=== PATIENT | male | born 1970 | race Caucasian/White ===

== ENCOUNTER 2017-10-22 21:16 | Observation (INO) ==
[2017-10-22] MEDS ORDERED: Aspirin 81 MG TAB.CHEW PO ONE (21:42)
--- NOTE | 2017-10-22 21:46 | Emergency Department Note ---
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 Pt complaint: chest pain Onset (ago): Just SOX ANALYST Duration: constant, now resolved Onset: during exertion Pain Location: substernal, left chest Severity: mild, moderate, now resolved Severity scale (1-10): 0 Quality: tightness, aching Pain Radiation: none Improves with: nothing Worsens with: exertion Treatments prior to arrival chest pain: none - Related Data Previous Rx's Medication Instructions Recorded Butenafine HCl [Lotrimin Ultra] 1 applic TP BID #15 gm 02/07/16 Ketoconazole Shampoo [Nizoral 120 ml TP ONCE #1 shampoo 05/08/16 Shampoo] Clotrimazole 1% CRM [Lotrimin 1%] 1 appl TP BID PRN #1 tube 02/09/17 Terbinafine HCl [Lamisil] 250 mg PO QDPC #14 tablet 02/09/17 Hydrocortisone 1% OINT [Cortaid] 0.5 inch TP BID #1 tube 03/22/17 Diphenhydramine HCl/Zinc Acet 28.3 gm TP BID #1 cream..g. 03/23/17 [Benadryl Itch Stopping Crm] Amoxicillin/Clavulanate [Augmentin] 875 mg PO BIDWM 5 Days tablet 05/06/17 Clotrimazole 1% CRM [Lotrimin 1%] 15 appl TP BID #1 tube 05/06/17 Guaifenesin [Mucinex] 1,200 mg PO BID #20 tab.er.12h 06/02/17 Ibuprofen [Motrin] 600 mg PO Q8HR PRN #20 tab 06/02/17 Loratadine/Pseudophed (12 HR) 1 each PO BID #14 tab.er.12h 06/02/17 [Claritin D (12HR)] Gentamicin OPTH Soln 1 drop LEFT EYE QID #1 bottle 07/21/17 Dexamethasone OPTH Drops [Decadron 1 drop LEFT EYE QID 5 Days #1 07/24/17 OPTH Drops] bottle Ibuprofen [Motrin] 600 mg PO Q8HR PRN #21 tab 07/24/17 methylPREDNISolone [Medrol] 1 each PO DAILY #1 pack 10/09/17 Allergies Allergy/AdvReac Type Severity Reaction Status Date / Time No Known Allergies Allergy Verified 10/09/17 15:54 All systems ED: reviewed and negative except as stated. Constitutional: Denies: fever, chills, weakness, weight change Eyes: Denies: eye pain, eye discharge, vision change ENT ED: Denies: ear pain, throat pain, dental pain, hearing loss, epistaxis, congestion, dysphagia Cardiovascular: Reports: chest pain. Denies: palpitations, dyspnea on exertion , edema, syncope Respiratory: Denies: cough, dyspnea, wheezes, hemoptysis, stridor Gastrointestinal: Denies: abdominal pain, nausea, vomiting, diarrhea, constipation, hematemesis, melena, hematochezia Genitourinary: Denies: urgency, dysuria, frequency, hematuria Musculoskeletal: Denies: back pain, neck pain, arthralgia, myalgia Integumentary: Denies: rash, abrasion, lesions Neurological: Denies: headache, weakness, numbness, paresthesias, confusion, abnormal gait, vertigo Psychiatric: Denies: anxiety, depression, suicidal thoughts, homicidal thoughts , auditory hallucinations, visual hallucinations Endocrine: Denies: fatigue Hematological/Lymphatic: Denies: easy bleeding, easy bruising Allergic/Immunologic: Denies: facial swelling, urticaria Chest Pain PMH - Past Medical History Medical history: Reports: non-contributory, hyperlipidemia, hypertension, other Surgical history: Reports: non-contributory Psychiatric history: Reports: no psych history - Social History Smoking Status: Former smoker Alcohol use: Reports: none Drug use: Reports: none Physical Exam - General Limitations: no limitations General appearance: alert - Head Head exam: atraumatic - Eye Eye exam: Present: normal appearance, PERRL, EOMI - ENT ENT exam: normal exam, normal oropharynx, mucous membranes moist - Neck Neck exam: Present: normal inspection, full ROM, trachea midline - Chest Chest inspection: Present: normal inspection, symmetric chest wall rise - Respiratory Respiratory exam: Present: normal lung sounds bilaterally - Cardiovascular Cardiovascular exam: Present: regular rate, normal rhythm, normal heart sounds - Abdominal Exam Abdominal exam: Present: soft, Non-Tender. Absent: tenderness, distention, guarding, rebound, rigidity - Extremities Exam Extremities exam: Present: normal inspection, full ROM. Absent: tenderness, pedal edema - Expanded Lower Extremity Exam Neurovascular/Tendon exam: Absent: motor deficit, sensory deficit, tendon deficit Gait: observed and normal - Back Exam Back exam: Present: normal inspection - Neurological Exam Neurological exam: Present: alert, oriented X3 - Psychiatric Psychiatric exam: Present: normal affect, normal mood - Skin Skin exam: Present: warm, dry, intact, normal color Course - Reevaluation(s) Reevaluation #1: 47-year-old with exertional chest pain will admit. Time: 23:02 - Consultations Consultation #1: Discussed with Dr. Rodrigues, admit. Time: 23:02 Vital Signs Temperature 98.4 F 10/22/17 21:23 Pulse Rate 64 10/22/17 21:23 Respiratory Rate 22 10/22/17 21:23 Blood Pressure 179/103 10/22/17 21:23 O2 Sat by Pulse Oximetry 97 10/22/17 21:23 Temperature 98.4 F 10/22/17 21:23 Pulse Rate 63 10/22/17 22:47 Respiratory Rate 16 10/22/17 22:47 Blood Pressure 149/93 10/22/17 22:47 O2 Sat by Pulse Oximetry 99 10/22/17 22:47 Oxygen Delivery Oxygen Delivery Room Air Chest Pain - Lab Data Lab results reviewed: Yes I reviewed the patient's lab results. Result diagrams: 10/22/17 22:03 10/22/17 22:03 Lab Results 10/22/17 10/22/17 10/22/17 Range/Units 22:03 22:03 22:03 WBC 7.3 (4.3-11.1) K/mcL RBC 4.67 (4.19-5.50) M/mcL Hgb 12.7 L (12.9-16.9) g/dL Hct 40.4 (37.5-50.1) % MCV 86.5 (83.0-100.0) fL MCH 27.2 L (28.0-33.3) pg MCHC 31.4 L (31.6-35.5) g/dL RDW 15.6 H (11.5-14.5) % Plt Count 322 (140-400) K/mcL MPV 10.6 (9.4-12.4) fL Immature Gran % 0.3 (0-4) % Seg Neutrophils % 63.7 % Lymphocytes % 22.1 % Monocytes % 10.9 % Eosinophils % 2.2 % Basophils % 0.8 % Neutrophils # 4.7 (1.6-8.9) K/mcL Lymphocytes # 1.6 (0.6-4.6) K/mcL Monocytes # 0.8 (0.0-1.3) K/mcL Eosinophils # 0.2 (0.0-0.6) K/mcL Basophils # 0.1 (0.0-0.2) K/mcL PT 11.8 (9.4-12.1) Seconds INR 1.1 APTT 29.7 (26.0-36.0) Seconds Sodium 141 (136-145) mEq/L Potassium 3.6 (3.5-5.1) mEq/L Chloride 107 (98-107) mEq/L Carbon Dioxide 25 (23-29) mEq/L BUN 19 (6-20) mg/dL Creatinine 1.04 (0.70-1.30) mg/dL Est GFR ( Amer) > 60 (> 60) Est GFR (Non-Af Amer) > 60 (> 60) BUN/Creatinine Ratio 18 (6-26) Glucose 126 H (70-105) mg/dL Calculated Osmolality 296 (280-300) Calcium 9.4 (8.6-10.3) mg/dL Troponin I < 0.03 (< 0.04) ng/mL - Radiology Data Radiology results reviewed: Yes I reviewed the patient's radiology results. Chest X-Ray 10/22/17 21:42 IMPRESSION: No acute disease. D/ / Regulo Gross MD / Regulo Gross MD Interpreting Provider: Regulo Gross MD - EKG Data EKG attestation: Yes I reviewed and interpreted this EKG. EKG shows normal: sinus rhythm Rate: normal Rhythm: NSR Interpretation: no acute changes
[2017-10-22 22:29] LABS: Basophils # 0.1 K/mcL (0.0-0.2); Basophils % 0.8 %; Eosinophils # 0.2 K/mcL (0.0-0.6); Eosinophils % 2.2 %; Hematocrit 40.4 % (37.5-50.1); Hemoglobin 12.7 g/dL (12.9-16.9); Immature Granulocytes % 0.3 % (0-4); Lymphocytes # 1.6 K/mcL (0.6-4.6); Lymphocytes % 22.1 %; Mean Corpuscular HGB Conc 31.4 g/dL (31.6-35.5); Mean Corpuscular Hemoglobin 27.2 pg (28.0-33.3); Mean Corpuscular Volume 86.5 fL (83.0-100.0); Mean Platelet Volume 10.6 fL (9.4-12.4); Monocytes # 0.8 K/mcL (0.0-1.3); Monocytes % 10.9 %; Neutrophils # 4.7 K/mcL (1.6-8.9); Platelet Count 322 K/mcL (140-400); Red Blood Count 4.67 M/mcL (4.19-5.50); Red Cell Distribution Width 15.6 % (11.5-14.5); Segmented Neutrophils % 63.7 %
[2017-10-22 22:38] LABS: INR 1.1; Prothrombin Time 11.8 Seconds (9.4-12.1)
[2017-10-22 22:41] LABS: Activated Partial Thrombo Time 29.7 Seconds (26.0-36.0)
[2017-10-22 22:56] LABS: BUN/Creatinine Ratio 18 (6-26); Blood Urea Nitrogen 19 mg/dL (6-20); Calcium 9.4 mg/dL (8.6-10.3); Carbon Dioxide 25 mEq/L (23-29); Chloride 107 mEq/L (98-107); Glucose 126 mg/dL (70-105); Osmolality,Calculated 296 (280-300); Potassium 3.6 mEq/L (3.5-5.1); Sodium 141 mEq/L (136-145); Troponin I < 0.03 ng/mL (< 0.04); eGFR For African Americans > 60 (> 60); eGFR For Non-African Americans > 60 (> 60)
[2017-10-23] MEDS ORDERED: Acetaminophen 325 MG TABLET PO PRN (01:24)
[2017-10-23] MEDS ORDERED: Naloxone 0.4 MG/ML INJ IVP PRN (01:24)
[2017-10-23] MEDS ORDERED: 0.9 % Sodium Chloride 1,000 ML IVC SCH (01:30)
[2017-10-23] MEDS: amLODIPine 5 MG TABLET PO SCH ×2 (02:12→09:29)
--- NOTE | 2017-10-23 04:18 | Internal Med History&Physical ---
Date of Encounter: 10/23/17 Time of Encounter: 01:00 Assessment and Plan (1) Hypertension Current visit: Yes Status: Acute Patient is not on any hypertensive medication. Will add amlodipine 10 mg daily. Follow-up BP Qualifiers: Hypertension type: essential hypertension Qualified Code(s): I10 - Essential (primary) hypertension (2) Seizure Current visit: Yes Status: Acute Patient has history of seizure, does not have seizure activity for many years. Off seizure medication for long-term already (3) Chest pain Current visit: Yes Status: Acute Patient has chest pain on pushing some carts. Musculoskeletal pain versus angina. Pain is reproducible upon palpitation - Place patient on continuous cardiac monitoring - Track 3 sets of troponin - Stress test in a.m. - Pain medication for pain control Qualifiers: Chest pain type: intercostal pain Qualified Code(s): R07.82 - Intercostal pain (4) DVT prophylaxis Current visit: Yes Status: Acute Patient is active and ambulating well. Expect patient having short hospitalization. No anticoagulation placed. Internal Medicine - H&P: HPI Chief complaint: Chest pain Admitted From: Home Plans for Post Hospital Care: Home History of present illness: Mr. Erickson is a 47 year old male with history of scoliosis after back surgery, seizure, hypertension, presented to ER for chest pain. 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 Patient occasionally has similar pain before. Patient said that the chest pain located on bilateral chest, no radiation. Patient denies shortness of breath, nausea, or diaphoresis. Patient denies fever. Patient has mild cough with no sputum. In emergency room, EKG unremarkable. Patient said he is pain-free when I saw him. Patient does not have primary care doctor at this point. Patient was admitted to rule out ACS. Past Med Surg Social Fam HX - Past Medical History Medical history: non-contributory, hyperlipidemia, hypertension, other Psychiatric history: no psych history - Past Surgical History Surgical History: non-contributory - Social History Smoking Status: Former smoker Smokeless Tobacco Status: No Alcohol use: rarely Drug use: none - Family History Father Living Status: Age at : 68 Cause of : pneumonia Hx Family Respiratory Disorders: Yes (copd) Internal Medicine - H&P: Meds Butenafine HCl [Lotrimin Ultra] 1 applic TP BID #15 gm 02/07/16 [Rx] Ketoconazole Shampoo [Nizoral Shampoo] 120 ml TP ONCE #1 shampoo 05/08/16 [Rx] Clotrimazole 1% CRM [Lotrimin 1%] 1 appl TP BID PRN #1 tube 02/09/17 [Rx] Terbinafine HCl [Lamisil] 250 mg PO QDPC #14 tablet 02/09/17 [Rx] Hydrocortisone 1% OINT [Cortaid] 0.5 inch TP BID #1 tube 03/22/17 [Rx] Diphenhydramine HCl/Zinc Acet [Benadryl Itch Stopping Crm] 28.3 gm TP BID #1 cream..g. 03/23/17 [Rx] Amoxicillin/Clavulanate [Augmentin] 875 mg PO BIDWM 5 Days tablet 05/06/17 [Rx] Clotrimazole 1% CRM [Lotrimin 1%] 15 appl TP BID #1 tube 05/06/17 [Rx] Guaifenesin [Mucinex] 1,200 mg PO BID #20 tab.er.12h 06/02/17 [Rx] Ibuprofen [Motrin] 600 mg PO Q8HR PRN #20 tab 06/02/17 [Rx] Loratadine/Pseudophed (12 HR) [Claritin D (12HR)] 1 each PO BID #14 tab.er.12h 06/02/17 [Rx] Gentamicin OPTH Soln 1 drop LEFT EYE QID #1 bottle 07/21/17 [Rx] Dexamethasone OPTH Drops [Decadron OPTH Drops] 1 drop LEFT EYE QID 5 Days #1 bottle 07/24/17 [Rx] Ibuprofen [Motrin] 600 mg PO Q8HR PRN #21 tab 07/24/17 [Rx] methylPREDNISolone [Medrol] 1 each PO DAILY #1 pack 10/09/17 [Rx] 3 Allergy/AdvReac Type Severity Reaction Status Date / Time No Known Allergies Allergy Verified 10/09/17 15:54 All Systems PM: A 10-system review of systems was performed and is negative for pertinent findings except as documented above in the HPI. - Constitutional Vitals: Temp Pulse Resp BP Pulse Ox 97.6 F 52 16 145/88 96 10/23/17 00:17 10/23/17 00:17 03/05/18 00:17 10/23/17 01:36 10/23/17 00:17 General appearance: Present: A&O X 3, pleasant, answers questions appropriately - Head Head exam: Present: atraumatic, normocephalic - Eye Eye exam: Present: PERRL, conjuntiva pink, sclera anicteric Pupils: Present: PERRL - Neck Neck exam general surgery: Present: supple, trachea midline. Absent: lymphadenopathy - Respiratory Respiratory exam: Present: chest wall tenderness (Bilaterally), CTAB. Absent: accessory muscle use, rales, rhonchi, wheezes - Cardiovascular Cardiovascular exam: Present: RRR, +S1, +S2. Absent: diastolic murmur, gallop, rubs, systolic murmur - GI/Abdominal GI/Abdominal exam: Present: normal bowel sounds, soft, no peritoneal signs. Absent: distended, tenderness - Extremities Exam Extremities exam: Present: warm, radial pulses palpable and symmetrical. Absent : calf tenderness, cyanotic, pedal edema - Neurological Exam Neurological exam: Present: CN II-XII intact, oriented X3, no focal deficits. Absent: pronater drift, facial droop, speech deficit - Skin Skin exam: Present: dry, intact Internal Med - H&P Results - Labs CBC & Chem 7: 10/22/17 22:03 10/22/17 22:03 - EKG Data -: EKG Interpreted by Myself EKG shows normal: sinus rhythm Rate: normal
[2017-10-23 04:47] LABS: Basophils # 0.1 K/mcL (0.0-0.2); Eosinophils # 0.1 K/mcL (0.0-0.6); Eosinophils % 2.8 %; Hematocrit 38.2 % (37.5-50.1); Immature Granulocytes % 0.4 % (0-4); Lymphocytes # 1.5 K/mcL (0.6-4.6); Lymphocytes % 29.8 %; Mean Corpuscular HGB Conc 31.4 g/dL (31.6-35.5); Mean Corpuscular Hemoglobin 26.8 pg (28.0-33.3); Mean Corpuscular Volume 85.3 fL (83.0-100.0); Mean Platelet Volume 10.9 fL (9.4-12.4); Monocytes # 0.8 K/mcL (0.0-1.3); Monocytes % 16.7 %; Neutrophils # 2.5 K/mcL (1.6-8.9); Platelet Count 299 K/mcL (140-400); Red Blood Count 4.48 M/mcL (4.19-5.50); Red Cell Distribution Width 15.6 % (11.5-14.5); Segmented Neutrophils % 49.3 %
[2017-10-23 05:03] LABS: BUN/Creatinine Ratio 20 (6-26); Blood Urea Nitrogen 19 mg/dL (6-20); Carbon Dioxide 26 mEq/L (23-29); Chloride 109 mEq/L (98-107); Glucose 120 mg/dL (70-105); Osmolality,Calculated 295 (280-300); Potassium 3.7 mEq/L (3.5-5.1); Sodium 141 mEq/L (136-145); eGFR For African Americans > 60 (> 60); eGFR For Non-African Americans > 60 (> 60)
[2017-10-23] MEDS ORDERED: Regadenoson 0.4 MG/5 ML SYRINGE IVP ONE (06:12)
--- NOTE | 2017-10-23 17:35 | Event Note ---
Date of Encounter: 10/23/17 Time of Encounter: 17:32 Seen and examined at bedside. Says she feels better. No CP, no SOB (1) Hypertension BP elevated on arrival. Not on any hypertensive medication. Amlodipine added with improvement in BP. (2) Seizure Patient has history of seizure, does not have seizure activity for many years. Off seizure medication for long-term already. Seizure precautions. (3) Chest pain Patient has chest pain on pushing some carts. Musculoskeletal pain versus angina. Pain is reproducible upon palpitation. Stress test completed; final results pending. Echocardiogram pending. (4) DVT prophylaxis Patient is active and ambulating well. Expect patient having short hospitalization. No anticoagulation placed.
[2017-10-23] MEDS: Aspirin 81 MG TAB.CHEW PO SCH (18:40)
[2017-10-24 07:23] VITALS: BP 113/72
[2017-10-24] MEDS: Aspirin 81 MG TAB.CHEW PO SCH (08:42)
[2017-10-24] MEDS: amLODIPine 5 MG TABLET PO SCH (08:43)
--- NOTE | 2017-10-24 09:49 | Discharge Summary ---
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 Serial troponin negative , EKG without ST changes. TTE with EF 60%, no wall motion abnormalities. Stress test negative for ischemia or infarct. Suspect musculoskeletal as chest pain was reproducible and occurred with physical activity. Uncontrolled BP could have contributed as well. CP resolved at time of discharge. Qualifiers: Chest pain type: intercostal pain Qualified Code(s): R07.82 - Intercostal pain (2) Hypertension Priority: Primary Status: Acute Comments: no known dx HTN. BP elevated on arrival with SBPs in 170s. Possibly contributing to chest pain. BP improved with amlodipine. Recommend follow-up with PCP within 1 week for BP recheck. Qualifiers: Hypertension type: essential hypertension Qualified Code(s): I10 - Essential (primary) hypertension (3) Seizure Priority: Secondary Status: Chronic Comments: per hx. Not on AEDs at home. Last seizure "many years ago". No seizure activity while inpatient. Follow-up with PCP Hospital course: Mr. Erickson is a 47 year old male with H remote seizure disorder who presented to [facility] on 10/23/2017 with c/o CP. He was placed in observation status for ACS rule out. He underwent a negative cardiac work-up and was discharged home in stable condition with outpatient follow-up. Please see assessment and plan for further details. Discharge discussed with: patient - Time Spent with Patient Total time spent providing and/or coordinating discharge services: - Discharge Medications Prescriptions: amLODIPine [Norvasc] 10 mg PO DAILY #30 tablet Home Medications: amLODIPine [Norvasc] 10 mg PO DAILY #30 tablet 10/24/17 [Rx] Allergies/Adverse Reactions: 3 Allergy/AdvReac Type Severity Reaction Status Date / Time No Known Allergies Allergy Verified 10/09/17 15:54 Date of admission: 10/22/17 23:26 Primary care physician: PCP NONE Discharging clinician: Lisa Hanna Anticipated date of discharge: 10/24/17 - Constitutional Vitals: Temp Pulse Resp BP Pulse Ox 98.2 F 57 14 113/72 99 10/24/17 07:21 10/24/17 07:21 10/24/17 07:21 10/24/17 07:21 10/24/17 07:21 General appearance: Present: A&O X 3, pleasant, answers questions appropriately - Head Head exam: Present: atraumatic, normocephalic - Eye Eye exam: Present: PERRL, conjuntiva pink, sclera anicteric Pupils: Present: PERRL - Neck Neck exam general surgery: Present: supple, trachea midline. Absent: lymphadenopathy - Respiratory Respiratory exam: Present: CTAB. Absent: accessory muscle use, rales, rhonchi, wheezes - Cardiovascular Cardiovascular exam: Present: RRR, +S1, +S2. Absent: diastolic murmur, gallop, rubs, systolic murmur - GI/Abdominal GI/Abdominal exam: Present: normal bowel sounds, soft, no peritoneal signs. Absent: distended, tenderness - Extremities Exam Extremities exam: Present: warm, radial pulses palpable and symmetrical. Absent : calf tenderness, cyanotic, pedal edema - Neurological Exam Neurological exam: Present: CN II-XII intact, oriented X3, no focal deficits. Absent: pronater drift, facial droop, speech deficit - Skin Skin exam: Present: dry, intact - Patient Status Disposition: Home, Self-Care Condition: Good Functional capacity at discharge: independent ambulation Overall status at discharge: patient is back to baseline - Discharge Instructions Instructions: Chronic Hypertension (DC), Amlodipine (By mouth) Follow Up With: NONE,PCP [Primary Care Provider] - Brittany Sofia DO [Resident] - 10/30/17 10:00 am - Diet and Activity Activity: increase activity as tolerated Diet: advance to your usual diet
--- NOTE | 2017-10-24 18:06 | Electrocardiograph Report ---
[place] [id number] Test Date: 2017-10-22 Pat Name: Nickolas Erickson Department: 102 Room: 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
== END 2017-10-24 11:31 | disposition home or self-care (01) ==
LOC: EMEROO 21:16 → 3NENU 21:16 → SUATTDRO 23:26 → 3NENU 10-23
PROVIDERS: ADMIT Internal Medicine; ATTEND Registered Nurse